=== PATIENT | female | born 2000 | race Caucasian/White ===

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

== ENCOUNTER 2022-12-12 20:56 | Emergency (ER) | payer OTHER, SELFPAY ==
[2022-12-12 21:00] VITALS: BP 186/107; PULSE 118; RESP 20; TEMP 36.3; O2SAT 100; BMI 45.0
--- NOTE | 2022-12-12 22:21 | CT_ITS ---
STUDY: CT BRAIN WITHOUT CONTRAST REASON FOR EXAM: Female, 22 years old. headache, dizziness RADIATION DOSAGE (If Supplied By Facility): CTDIvol = ( 44.99 ) mGy, DLP = ( 829.85 ) mGycm TECHNIQUE: Transaxial CT imaging of the brain was performed without administration of intravenous contrast material. Individualized dose optimization techniques were used for this CT. COMPARISON: No relevant priors. FINDINGS: Normal soft tissue structures. Normal calvarium. Normal size ventricles and extra-axial spaces for the patient''s age. Normal white matter tracts of the cerebral hemispheres. Normal basal ganglia and thalami. Normal brainstem. Normal cerebellum. There is no intracranial hemorrhage. There are no findings of an acute ischemic infarction. Normal visualized paranasal sinuses. CT/Brain/Head without Contrast IMPRESSION: Normal unenhanced CT scan of the brain. Electronically Signed: Milton Barreto MD at 22:40 EDT ,
--- NOTE | 2022-12-12 22:21 | EX.ED.VIS.HA ---
HPI History of Present Illness Chief Complaint: Headache Detail of Chief Complaint: Headache and dizziness Informant: patient Narrative Narrative: Patient presents the emergency department complaint of headache and some dizziness x1 week. Headache has been off and on. She describes it as frontal and throbbing. Currently rates it a 3-4 out of 10. She is been taking Excedrin and Tylenol and not get much relief. With certain head position she feels lightheaded like things are moving. She denies spinning type sensation. She was seen at urgent care and referred to the ER where she came to the ER yesterday but did not want to wait 3 hours so she went home. Patient denies any falls or head injuries. She states that at urgent care they took her temperature and she had a low-grade temperature but cannot tell me how high it was. She has not had cough or sore throat. She did take a COVID test 2 days ago and was negative at home. No family history of brain tumors or aneurysms. PFSH PFSH Medical History no medical history Home Medications meclizine 25 mg chewable tablet (Antivert) 25 mg PO TID PRN dizziness #10 tabs 12/12/22 [Rx Last Taken Unknown] Allergy/AdvReac Type Severity Reaction Status Date / Time No Known Allergies Allergy Verified 12/12/22 21:00 Social History Smoking Status: Never smoker ROS ROS ED Review of Systems ROS Unobtainable: other Constitutional Constitutional ED: Reports lethargy; Denies chills, fever(s), sweats or weight loss Eyes Eyes: Denies blurry vision, change in vision or diplopia ENT ENT ED: Denies rhinorrhea or sore throat Cardiovascular Cardiovascular: Denies chest pain, orthopnea or racing heartbeat Respiratory/Chest Respiratory/Chest: Denies cough, dyspnea, dyspnea on exertion, orthopnea or sputum Gastrointestinal Gastrointestinal: Denies abdominal pain, diarrhea, nausea or vomiting Genitourinary Genitourinary ED: Denies dysuria, hematuria or urinary frequency Musculoskeletal Musculoskeletal: Denies arthralgias, back pain, myalgias or neck pain Integumentary Denies abscess, Abrasions or rash Neurologic Neurologic: Reports headache(s) and other Details: Dizziness ; Denies weakness Psychiatric Psychiatric: Denies anxiety, depression or suicidal thoughts Endocrine Endocrinology: Denies polydipsia, polyphagia or polyuria Hematologic/Lymphatic Hematologic/Lymphatic: Denies easy bleeding, easy bruising or lymphadenopathy Allergic/Immunologic Allergic/Immunologic ED: Denies mouth swelling, tongue swelling or urticaria EXAM Physical Exam Const Vital Signs: 12/12/22 21:00 Temperature 97.4 F L Temperature Source Temporal Pulse Rate 118 H Respiratory Rate 20 H Blood Pressure 186/107 H Blood Pressure Mean 133 Pulse Ox 100 Positive well nourished and well developed General Appearance ED: well developed and NAD HEENT Reports TM's clear and moist mucous membranes normocephalic and atraumatic; Negative for trauma or tenderness Tympanic Membrane ED: Yes TM's clear Eyes PERRL and EOMs intact bilaterally General Eye ED: Negative for pale conjunctiva or scleral icterus Neck no lymphadenopathy, supple and no JVD General: Negative for tenderness Chest Wall inspection of chest normal and palpation of chest normal Chest: Negative for tenderness Resp normal respiratory effort and clear to auscultation bilaterally Effort and Inspection: Negative for respiratory distress or pain with movement Auscultation: Negative for rhonchi, wheezes or diminished lung sounds Cardio regular rate, regular rhythm, S1 normal heart sound, S2 normal heart sound and no murmurs Peripheral Pulses: pulses 2+ throughout GI normal to inspection, nondistended, normoactive bowel sounds, soft to palpation, non-tender, non-distended and no masses Back/Spine no CVA tenderness and no thoracic nor lumbar tenderness Extremity normal to inspection General Extremety ED: Negative for edema General Extremity: Negative for edema Neuro oriented x3, CN's II-XII intact bilaterally, no sensory deficits noted and gait normal Neuro Narrative: Finger-nose and heel bettencourt testing within normal limits, negative Romberg, negative , Fundi benign Sensorium / Orientation: awake, alert, oriented to person, oriented to place and oriented to time Motor Exam: strength 5/5 throughout and strength abnormal Psych mental status grossly normal Skin no rashes or lesions noted and no wounds MDM MDM MDM Narrative Medical decision making narrative: Patient presents with headache and dizziness. Patient typically does not get headaches. Has not had falls or head injuries. Recommended IV and fluids and is well as basic labs. Mother and patient states that she is scared of needles and does not want to have an IV. Given that she has headache for a week with dizziness also recommended CT brain without contrast which they agreed to but they do not want to have any IV or lab work. Patient presents with mild vague headache off and on for a week with some dizziness. CT scan of the brain was unremarkable. In the differential would be vertigo versus viral infection versus migraine or tension headache. Patient will be given a prescription for Antivert. She is advised to follow-up with primary care physician within next 5 to 7 days. She is to push fluids. Radiography Diagnostic Testing: Clinical Impression(s) from Imaging Studies Brain CT 12/12/22 22:21 IMPRESSION: Normal unenhanced CT scan of the brain. Electronically Signed: Milton Barreto MD at 22:40 EDT , Discharge Plan Triage Chief Complaint: Headache ED Provider: Jerome Troy Dx/Rx/DC Orders Clinical Impression: Dizziness, Headache Instructions: ED Dizziness, Uncertain Cause, ED Pain, Acute, Uncertain Cause Prescriptions: New meclizine [Antivert] 25 mg tablet,chewable 25 mg PO TID PRN (Reason: dizziness) Qty: 10 0RF Primary Care Provider: Edel Ball Referrals: Edel Ball MD [Primary Care Provider] - 5-7 Days Disposition Disposition: Home, Self Care
== END 2022-12-12 23:19 | disposition home or self-care (01) ==
PROVIDERS: Emergency Provider Emergency Medicine; PCP Pediatrics; Visit Provider Emergency Medicine
DX: R51.9 Headache, unspecified (principal); R42 Dizziness and giddiness
CPT/HCPCS: 70450; 99282

== ENCOUNTER → 2023-11-22 | Outpatient (CLI) | payer OTHER, SELFPAY ==
[2023-11-22 08:27] LABS: Mucous, Urine 0 SEEN /hpf (<or=2+); Red Blood Cells-Urine 0 SEEN /hpf (0-5)
[2023-11-22 10:09] LABS: Absolute Lymphocyte Count 4.06 X10^3/uL (0.83-4.51); Absolute Neutrophil Count 7.4 X10^3/uL (2.0-7.7); Basophil# 0.07 X10^3/uL; Basophil% 0.6 % (0-1); Eosinophil# 0.32 X10^3/uL; Eosinophils% 2.5 % (0-5); Hematocrit 42.4 % (37-47); Hemoglobin 14.1 g/dL (12.0-15.0); Lymphocyte # 4.06 X10^3/ul (0.83-4.51); Lymphocyte % 32.1 % (19-41); Mean Corp Hgb Conc 33.3 g/dL (32-36); Mean Corpuscular Hgb 27.3 pg (27.0-32.0); Mean Corpuscular Volume 82.2 fL (81-99); Mean Platelet Vol. 8.7 fl (6.2-12.0); Monocyte# 0.71 X10^3/uL; Monocyte% 5.6 % (0-10); NRBC Flagged by Analyzer 0 % (0-5); Neutrophil # 7.41 X10^3/uL (2.7-7.7); Neutrophil % 58.6 % (47-70); Platelet Count 365 K/mm3 (150-450); RBC Distribution Width CV 12.1 % (11.6-14.6); RBC Distribution Width SD 36.4 fl (35.1-43.9); Red Blood Count 5.16 M/mm3 (4.2-5.4); White Blood Count 12.6 K/mm3 (4.4-11.0)
[2023-11-22 10:18] LABS: Color, Urine Yellow (Yellow); Glucose, Dipstick Normal (Normal); Ketone-Dipstick Negative (Negative); Leukocyte Esterase-Dipstick 25 /ul (Negative); Nitrite-Dipstick Negative (Negative); Occult Blood-Urine 10 /ul (Negative); Protein-Dipstick 15 mg/dl (Negative); Specific Gravity, Urine 1.025 (1.002-1.030); Urine Bilirubin Dipstick Negative (Negative); Urine Clarity Sl. Cloudy (Clear); Urine Urobilinogen Normal (Normal)
[2023-11-22 10:27] LABS: Bacteria 1+ /hpf (None Seen); Squamous Epithelial Cells - UA 5-10 SEEN /hpf (5-10); White Blood Cells 0-5 SEEN /hpf (0-5)
[2023-11-22 15:27] LABS: ALB/GLOB Ratio 0.9 RATIO (0.9-2.4); AST(SGOT) 48 U/L (15-37); Alanine Aminotransfer ALT/SGPT 64 U/L (13-56); Albumin, Serum 3.5 g/dL (3.2-5.0); Alkaline Phosphatase 86 U/L (45-117); Anion Gap 7 (5-15); BUN 16 mg/dL (7-18); BUN/Creat Ratio 21.7 RATIO (10-20); Calcium,Total 9.2 mg/dL (8.5-10.1); Chloride 108 mmol/L (98-107); Cholesterol 153 mg/dL (200); Creatinine, Serum 0.74 mg/dL (0.55-1.02); EST Glomerular Filtration Rate 106 mL/min (>60); Est Glom Filt Rate - Afr Amer 128 mL/min (>60); Follicle Stimulating Hormone 4.4 mIU/mL; Globulin 4.1 g/dL (2.2-4.2); Glucose 120 mg/dL (74-106); High Density Lipoprotein 30 mg/dL; Luteinizing Hormone 4.1 mIU/mL; Magnesium 2.4 mg/dL (1.6-2.6); Protein, Total 7.6 g/dL (6.4-8.2); Sodium Level 138 mmol/L (136-145); Thyroid Stim Hormone (TSH) 3.94 uIU/mL (0.358-3.74); Triglycerides 136 mg/dL; Very Low Density Lipoprotein 27 mg/dL (5-40)
[2023-11-24 08:08] LABS: PROLACTIN 19.2 ng/mL (4.8-33.4)
[2023-11-25 14:42] LABS: T4 Free Direct 1.02 ng/dL (0.76-1.46)
[2023-11-25 14:55] LABS: Hemoglobin A1c 5.9 % (3.8-5.6)
[2023-11-25 15:20] LABS: Hepatitis B Surface Antigen Non-Reactive (Nonreactive); Hepatitis C Antibody Non-Reactive (Nonreactive)
[2023-11-29 08:11] LABS: 17-Hydroxyprogesterone 56 ng/dL (.)
== END | disposition home or self-care (01) ==
LOC: MTLAB 08:21
PROVIDERS: PCP Family Medicine; Referring Provider Family Medicine; Visit Provider Family Medicine
DX: R79.89 Other specified abnormal findings of blood chemistry (principal); E66.01 Morbid (severe) obesity due to excess calories; R73.09 Other abnormal glucose; N97.0 Female infertility associated with anovulation; R03.0 Elevated blood-pressure reading, without diagnosis of hypertension
CPT/HCPCS: 36415; 80053; 80061; 81001; 83001; 83002; 83036; 83498; 83735; 84146; 84403; 84432; 84439; 84443; 85025; 86376; 86707; 86800; 86803; 87340

== ENCOUNTER → 2024-11-11 | Outpatient (CLI) | payer OTHER, SELFPAY ==
[2024-11-11 15:57] LABS: AST(SGOT) 30 U/L (<=31); Alanine Aminotransfer ALT/SGPT 39 U/L (<=34); Albumin, Serum 4.4 g/dL (3.5-5.0); Alkaline Phosphatase 82 U/L (35-104); Anion Gap 12 (5-15); BUN 21 mg/dL (4-19); BUN/Creat Ratio 33.4 RATIO (10-20); Calcium,Total 9.7 mg/dL (7.6-11.0); Carbon Dioxide 22.3 mmol/L (21.0-32.0); Chloride 105 mmol/L (98-108); Globulin 3.0 g/dL (2.2-4.2); Glucose 118 mg/dL (70-99); Potassium 4.2 mmol/L (3.3-5.1)
== END | disposition home or self-care (01) ==
LOC: MTLAB 11:07
PROVIDERS: PCP Family Medicine; Referring Provider Nurse Practitioner Family; Visit Provider Nurse Practitioner Family
DX: R73.02 Impaired glucose tolerance (oral) (principal); R79.89 Other specified abnormal findings of blood chemistry
CPT/HCPCS: 36415; 80053; 83036; 84439; 84443

== ENCOUNTER → 2024-11-17 | Outpatient (CLI) | payer OTHER, SELFPAY ==
--- NOTE | 2024-11-17 14:20 | US_ITS ---
PROCEDURE: PELVIC W/ TRANSVAGINAL 11/17/2024 REASON FOR EXAM: OLIGO-OVULATION. No LMP x2 years. TECHNIQUE: PELVIC W/ TRANSVAGINAL. Transabdominal and transvaginal grayscale, color and spectral Doppler pelvic ultrasound. COMPARISON: None. FINDINGS: ENDOMETRIUM: Homogeneous. Thickened endometrium measuring 18.1 mm. No abnormal endometrial color Doppler flow. UTERUS: Normal size and contour measuring 8.8 x 4.5 x 6.0 cm. No fibroid detected. CERVIX: Normal size and contour. Few small anechoic cervical nabothian cysts. RIGHT OVARY: Enlarged measuring 4.2 x 2.9 x 2.1 cm with a volume of 13.5 mL. Numerous small cysts at the periphery. Normal blood flow. No adnexal mass. LEFT OVARY: Normal size measuring 2.9 x 2.7 x 2.3 cm. Numerous small cysts at the periphery. Normal blood flow. No adnexal mass. FREE FLUID: No free fluid. OTHER: Normal appearance of the urinary bladder. US/Pelvic w/ Transvaginal IMPRESSION: 1. Bilateral polycystic ovarian morphology. 2. Endometrial thickening (18.1 mm) in a patient with prolonged amenorrhea. T his could be related to unopposed estrogen effect or endometrial hyperplasia. Reading Location: [id number]
== END | disposition home or self-care (01) ==
LOC: US 14:17
PROVIDERS: PCP Family Medicine; Referring Provider Nurse Practitioner Family; Visit Provider Nurse Practitioner Family
DX: N97.0 Female infertility associated with anovulation (principal)
CPT/HCPCS: 76830; 76856

== ENCOUNTER 2025-01-07 10:03 | Outpatient (RCR) | payer OTHER, SELFPAY | END 2025-01-26 23:59 | LOC: NS 10:03 | PROVIDERS: PCP Family Medicine; Referring Provider Nurse Practitioner Family; Visit Provider Nurse Practitioner Family | DX: Z71.3 Dietary counseling and surveillance (principal); R73.02 Impaired glucose tolerance (oral) | CPT/HCPCS: 97802 ==

== ENCOUNTER 2025-03-04 09:34 | Outpatient (RCR) | payer OTHER, SELFPAY | END 2025-03-28 23:59 | LOC: NS 09:34 | PROVIDERS: PCP Family Medicine; Referring Provider Nurse Practitioner Family; Visit Provider Nurse Practitioner Family | DX: Z71.3 Dietary counseling and surveillance (principal); R73.02 Impaired glucose tolerance (oral) | CPT/HCPCS: 97803 ==